=== PATIENT | female | born 1980 | race Two or more races ===

== ENCOUNTER 2024-11-26 08:30 | Emergency (ER) | payer BC, SELFPAY ==
[2024-11-26 08:31] VITALS: BMI 32.4
[2024-11-26 08:40] VITALS: BP 154/97; PULSE 106; RESP 16; TEMP 36.8; O2SAT 97; BMI 32.6
--- NOTE | 2024-11-26 08:50 | PD.EDRME ---
Rapid Medical Screening Exam RME Arrival date/time: 11/26/24 08:30 44-year-old female here with complaints of urinary retention history of renal stones I have greeted and performed a focused initial assessment of this patient. Initial appropriate labs ordered at this time. A comprehensive ED assessment and evaluation of the patient and analysis of all test and completion of medical decision making process will be conducted by additional ED provider. Chief Complaint: Urogenital-Female Time Seen by Provider: 11/26/24 08:40 Vital signs: Vital Signs Temperature 98.3 F 11/26/24 08:40 Pulse Rate 106 H 11/26/24 08:40 Respiratory Rate 16 11/26/24 08:40 Blood Pressure 154/97 H 11/26/24 08:40 Pulse Oximetry (%) 97 11/26/24 08:40 Oxygen Delivery Method Room Air 11/26/24 08:40
[2024-11-26 09:13] LABS: Basophils % (Auto) 1 % (0-2.5); Eosinophils % (Auto) 1 % (0-10); Hematocrit 43.2 % (36.0-46.0); Hemoglobin 14.9 g/dL (12.0-16.0); Immature Granulocytes % (Auto) 0 % (0-0); Immature Granulocytes Auto 0.01 Thou/mm3 (0.00-0.00); Lymphocytes # (Auto) 0.7 Thou/mm3 (1.0-4.8); Lymphocytes % (Auto) 16 % (10-50); Mean Corpuscular HGB Conc 34.5 g/dl (31.0-37.0); Mean Corpuscular Hemoglobin 29.3 pg (25.0-35.0); Mean Corpuscular Volume 85 fL (80-100); Monocytes # (Auto) 0.3 Thou/mm3 (0.0-0.8); Monocytes % (Auto) 8 % (0-12); Neutrophils # (Auto) 3.1 Thou/mm3 (1.8-7.7); Neutrophils % (Auto) 74 % (37-80); Nucleated Red Blood Cell % 0 /100 WBC (0); Platelet Count 227 Thou/mm3 (140-440); RDW Standard Deviation 39.4 fL (36.4-46.3); Red Blood Count 5.08 Miln/mm3 (4.00-5.20); White Blood Count 4.2 Thou/mm3 (3.6-11.0)
--- NOTE | 2024-11-26 09:20 | PC.NURSE ---
PATIENT CAME IN WITH C/O DIFFICULTY URINATING SINCE 4AM. STATES THIS HAPPENED TO HER DURING . SHE HAD DIFFICULTY THEN AND CATHETER WAS PLACED. SHE WENT HOME WITH A LEG BAG TO FOLLOWED UP WITH PMD. SHE IS AWAITING SURGERY DUE TO HERNIAS AND KIDNEY STONES THAT ARE RESTRICTING HER URINATION DUE TO THE LOCATION OF THE HERNIAS. PT AWARE CT ORDERED STATES SHE HAS HAD A LOT OF CT'S RECENTLY AND FEELS THAT SHE IS ALREADY AWARE OF THE PROBLEM AND DOES NOT FEEL CT IS NECESSARY. HERSELF AND DAUGHTER REQEUST TO REFUSE CT. AWARE. IN TO SPEAK WITH PT AT THIS TIME.
[2024-11-26 09:34] LABS: HCG,Qualitative Serum Negative
[2024-11-26 09:41] LABS: Alanine Aminotransferase 15 U/L (10-49); Albumin, Serum 4.8 gm/dL (3.5-5.0); Albumin/Globulin Ratio 1.5 (1.2-2.2); Alkaline Phosphatase 81 U/L (46-116); Anion Gap 6 (7-16); Aspartate Amino Transferase < 8 U/L (0-34); BUN/Creatinine Ratio 7 Ratio (12-20); Bilirubin,Total 0.4 mg/dL (0.3-1.2); Blood Urea Nitrogen 5 mg/dL (9-23); Calcium 9.2 mg/dL (8.3-10.6); Calcium (Corrected) 9.2 mg/dL (8.5-10.1); Carbon Dioxide 27.2 mMol/L (20.0-31.0); Chloride 105 mMol/L (98-107); Creatinine (Component) 0.7 mg/dL (0.6-1.3); Estimated Creatinine Clearance 115.9 mL/min (>60); Globulin 3.3 gm/dL (2.3-3.5); Glucose 111 mg/dL (74-106); Osmolality,Calculated 273 (275-295); Potassium 3.9 mMol/L (3.4-5.1); Sodium 138 mMol/L (136-145); Total Protein 8.1 gm/dL (5.7-8.2); eGFR > 60 See Note
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
== END 2024-11-26 09:40 | disposition home or self-care (01) ==
PROVIDERS: Nurse Practitioner Primary Care; Emergency Provider Emergency Medicine
DX: R33.9 Retention of urine, unspecified (principal)
CPT/HCPCS: 51702; 36415; 80053; 84703; 85025; 99283

== ENCOUNTER 2024-12-03 20:29 | Emergency (ER) | payer BC, SELFPAY ==
[2024-12-03 20:30] VITALS: BMI 32.1
[2024-12-03 20:58] VITALS: BP 150/105; PULSE 70; RESP 18; TEMP 36.8; O2SAT 97
--- NOTE | 2024-12-03 20:59 | PD.EDRME ---
Rapid Medical Screening Exam RME Arrival date/time: 12/03/24 20:29 44 year old female present to Ed for c/o Smith removal. I have greeted and performed a focused initial assessment of this patient. A comprehensive ED assessment and evaluation of the patient, analysis of all test results, and completion of the medical decision making process will be conducted by additional ED providers. Chief Complaint: Urogenital-Female Time Seen by Provider: 12/03/24 20:32 Vital signs: Vital Signs Temperature 98.3 F 12/03/24 20:58 Pulse Rate 70 12/03/24 20:58 Respiratory Rate 18 12/03/24 20:58 Blood Pressure 150/105 H 12/03/24 20:58 Pulse Oximetry (%) 97 12/03/24 20:58 Oxygen Delivery Method Room Air 12/03/24 20:58
--- NOTE | 2024-12-03 23:25 | PC.NURSE ---
Smith removed. Pt tolerated well. Leg bag had approx 200mL of urine in it. Pt given urine cup for pending UA UC and to ensure pt can void independently.
[2024-12-03 23:59] VITALS: BP 134/81; PULSE 78; RESP 18; TEMP 36.8; O2SAT 97
--- NOTE | 2024-12-04 00:22 | PC.NURSE ---
Pt states she has now voided twice independently.
--- NOTE | 2024-12-04 00:24 | EDNOTE_ITS ---
ED Female Urogenital RME/HPI General Chief complaint: Urogenital-Female Stated complaint: NEEDS ORELLANA REMOVED Time Seen by Provider: 12/03/24 20:32 Arrival date/time: 12/03/24 20:29 44 year old female present to emergency room with c/o of orellana removal. pt report had orellana placed 1 week ago and report has an appointment with urologist in jan 2025. SEVERITY: Symptoms are described as being severe with limitations on activities of daily living CONTEXT: The patient is unable to identify any inciting events. DURATION/TIMING: The symptoms started approximately 7 days ASSOCIATED SYMPTOMS: The patient is unable to identify any other associated symptoms. MODIFYING FACTORS: The patient is unable to identify any alleviating or aggravating symptoms. PERTINENT ROS: no fevers, no cough, , no chest pain/shortness of breath no nausea,vomiting, diarrhea, no dizziness/headache no rash no loc/syncope episode no abd/back pain no dsyuria,urgency,frequency REVIEW OF SYSTEMS: See History of Present Illness - with the exception of those mentioned in the history of present illness, all other systems reviewed and reported as negative GENERAL: In general the patient is awake, interactive, in an emergency department rney. HEAD/EYES/EARS/NOSE/THROAT: normo-cephalic, atraumatic, mucus membranes are moist, anicteric, palpebral conjunctiva is pink, trachea is midline. CARDIOVASCULAR: regular rate and regular rhythm, no murmurs, heart sounds are not distant, strong pulses in all four extremities that are equal and symmetric bilateral upper and lower extremities, normal capillary refill. CHEST/PULMONARY: normal chest rise and fall, good air movement, clear to auscultation bilaterally, normal inspiratory to expiratory ratios without evidence of respiratory distress. NECK: No midline/Paraspinal tenderness, no step off ROM/Strenght intact No Kernig and bruzinski sign. No trauma ABDOMEN: soft, not tender, no masses appreciated BACK: normal range of motion without pain. NEUROLOGICAL: cranio-facial features are symmetric, moves all four extremities equally without obvious limitations or weakness. EXTREMITY: no tenderness to palpation over the long bones or large joints of the bilateral upper and lower extremities, no joint swelling, no joint erythema, no signs of trauma, no unilateral leg swelling and no peripheral edema. SKIN: warm, dry, well-perfused, no jaundice, no rash, no telangiectasias or petechia. PSYCH: calm, cooperative, no evidence of psychosis or agitation RME / HPI RME / HPI Narrative: 12/03/24 20:29 44 year old female present to Ed for c/o Orellana removal. I have greeted and performed a focused initial assessment of this patient. A comprehensive ED assessment and evaluation of the patient, analysis of all test results, and completion of the medical decision making process will be conducted by additional ED providers. Related Data Allergies Allergy/AdvReac Type Severity Reaction Status Date / Time No Known Allergies Allergy Verified 12/03/24 20:32 Course Course Course Narrative: Pt is request orellana be removed, able to urinated twice provider mention you may not be able to urinated and may have to return to Ed for orellana placement again. pt understand the rest. urine pending. Quality Measures none Orders Category Date Time Status Urinalysis Stat Lab 12/03/24 23:27 Ordered Urine Culture Stat Lab 12/03/24 23:27 Ordered Vital Signs Vital signs: Vital Signs Temperature 98.3 F 12/03/24 20:58 Pulse Rate 70 12/03/24 20:58 Respiratory Rate 18 12/03/24 20:58 Blood Pressure 150/105 H 12/03/24 20:58 Pulse Oximetry (%) 97 12/03/24 20:58 Oxygen Delivery Method Room Air 12/03/24 20:58 Urogenital - Female Patient data External records reviewed:: [facility] previous records Clinical information provided by:: patient Social determinants that could affect healthcare access:: none Patient has the following chronic illnesses:: urinary retention How is presenting disease/condition affected by chronic disease/condition?: exacerbated by Evaluation data The following diagnostics were reviewed and interpreted by me:: lab results Lab and/or radiology exams considered but not ordered:: none Interpretation Summary: urine pending Medications / Prescriptions Medications or Prescriptions considered but not ordered:: none Medication administrations:: none Consultations Consultation(s) initiated? (list below): No Diagnosis Urogenital Female Differential Diagnosis: other (UTI, orellana removal ) Most likely diagnosis given after review of the tests above:: orellana removal Admission Indicated Admission indicated?: not indicated Admission Request Was there a request for admission?: No Disposition Plan Disposition Plan: Discharge Discharge Attestation Discharge Attestation: The patient and all family members were given an opportunity to ask questions and understood the discharge instructions. Discharge instructions specifically effects, indications for sooner follow up or return to the emergency department, and the expected course of current diagnosis. Patient condition: Stable Discharge Plan Plan Patient Disposition: HOME (Self Care) Health Concerns: Follow up with your specialist as directed Prescriptions/Referrals Referrals: No Primary/Family,Physician [Primary Care Provider] - In 1 week Problem List Clinical Impression: Encounter for Orellana catheter removal Patient/Caregiver Discharge Instructions Education Materials: Orellana Catheter Removal Print Language: Tanzanian Stand Alone Forms: Adriana Award Info., Patient Portal Info Letter
== END 2024-12-04 00:28 | disposition home or self-care (01) ==
PROVIDERS: Emergency Provider Emergency Medicine
DX: Z46.6 Encounter for fitting and adjustment of urinary device (principal)
CPT/HCPCS: 81001; 87086; 99282

== ENCOUNTER 2025-02-27 10:13 | Emergency (ER) | payer BC, SELFPAY ==
[2025-02-27 10:14] VITALS: BMI 29.0
[2025-02-27 10:22] VITALS: BP 162/90; PULSE 89; RESP 18; TEMP 36.9; O2SAT 99
--- NOTE | 2025-02-27 11:00 | PC.NURSE ---
1100ML URINE OUTPUT WITH SIERRA INSERTION
--- NOTE | 2025-02-27 11:14 | EDNOTE_ITS ---
<Statement entered by Rebekah King MD - 02/28/25 17:54> As co-signing physician, I was present and available for consult prn. I concur with the plan and care as documented by the midlevel provider. ED Female Urogenital RME/HPI General Chief complaint: General Adult/Misc Complain Stated complaint: UNABLE TO URINATE SINCE 6AM Time Seen by Provider: 02/27/25 10:24 Arrival date/time: 02/27/25 10:13 45-year-old female presents to the Emergency Department today with complaints of urinary retention. Patient reports history of urinary retention has been worked up fully for this. Patient reports that she has surgery scheduled for March for hysterectomy and bladder lift. Limitations: no limitations Related Data Allergies Allergy/AdvReac Type Severity Reaction Status Date / Time No Known Allergies Allergy Verified 02/27/25 10:16 Review of Systems Review of Systems Systems Reviewed: All systems reviewed, normal except as documented Constitutional Constitutional: Reports system reviewed and no additional complaints, except as documented, Denies fever(s) and Denies headache(s) Eyes Eyes: Reports system reviewed and no additional complaints, except as documented and Denies blurry vision ENT Ears, Nose, Mouth, and Throat: Reports system reviewed and no additional complaints, except as documented, Denies headache(s), Denies nasal congestion and Denies nasal discharge Cardiovascular Cardiovascular: Reports system reviewed and no additional complaints, except as documented, Denies chest pain and Denies dyspnea Respiratory Respiratory: Reports system reviewed and no additional complaints, except as documented, Denies chest congestion, Denies cough and Denies dyspnea Gastrointestinal Gastrointestinal: Reports system reviewed and no additional complaints, except as documented and Denies abdominal pain Genitourinary Genitourinary: Reports system reviewed and no additional complaints, except as documented and Reports other (Urinary retention) Integumentary/Breasts Skin/Breast: Reports system reviewed and no additional complaints, except as documented and Denies rash Neurologic Neurologic: Reports system reviewed and no additional complaints, except as documented, Reports as per HPI and Denies headache(s) Past Medical History Past Medical History CARDIAC: Negative Congestive Heart Failure RESPIRATORY: Negative Chronic Obstructive Pulmonary Disease (COPD) GENITOURINARY: Negative Renal Disease ENDOCRINE: Negative Diabetes Mellitus Type 1 or Diabetes Mellitus Type 2 Social History SMOKING STATUS: Never smoker ED Exam General Limitations: Present no limitations General appearance: Present alert and in no apparent distress Head Head exam: Present atraumatic, normocephalic and normal inspection Eye Eye exam: Present normal appearance, PERRL and EOMI; Absent conjunctival injec tion ENT ENT exam: Present normal exam, normal oropharynx and mucous membranes moist Neck Neck exam: Present normal inspection, full ROM and trachea midline Chest Chest inspection: Present normal inspection and symmetric chest wall rise Respiratory Respiratory exam: Present normal lung sounds bilaterally; Absent respiratory distress Cardiovascular Cardiovascular exam: Present regular rate, normal rhythm and normal heart sounds Abdominal Exam Abdominal exam: Present soft and normal bowel sounds; Absent distention, tenderness, guarding, rebound or rigidity Extremities Exam Extremities exam: Present normal inspection and full ROM Back Exam Back exam: Present normal inspection and full ROM Neurological Exam Neurological exam: Present alert, oriented X3 and CN II-XII intact Psychiatric Psychiatric exam: Present normal affect and normal mood Skin Skin exam: Present warm, dry, intact and normal color Course Quality Measures none Orders Category Date Time Status Smith [Urinary Catheter] QS Care 02/27/25 11:00 Completed Smith to Leg Bag Routine Care 02/27/25 11:00 Ordered Vital Signs Vital signs: Vital Signs Temperature 98.5 F 02/27/25 10:22 Pulse Rate 89 02/27/25 10:22 Respiratory Rate 18 02/27/25 10:22 Blood Pressure 162/90 H 02/27/25 10:22 Pulse Oximetry (%) 99 02/27/25 10:22 Oxygen Delivery Method Room Air 02/27/25 10:22 O2 saturation 99% room air wnl Urogenital - Female MDM Narrative MDM Narrative:: 45-year-old female presents to the Emergency Department today with complaints of urinary retention. Patient reports history of urinary retention has been worked up fully for this. Patient reports that she has surgery scheduled for March for hysterectomy and bladder lift. Patient states she does not want any lab work or imaging at this time she reports that she has a follow-up appointment with her specialist patient reports she just wants the catheter placed. Catheter was placed patient has significant amount of urine output Patient discharged home in no distress to follow-up with primary care doctor in the next 24 to 48 hours and for any worsening symptoms to return to the ER im mediately Patient data External records reviewed:: [facility] previous records Clinical information provided by:: patient Social determinants that could affect healthcare access:: none Patient has the following chronic illnesses:: none How is presenting disease/condition affected by chronic disease/condition?: no chronic disease Evaluation data The following diagnostics were reviewed and interpreted by me:: other (specify) (N/A) Lab and/or radiology exams considered but not ordered:: N/A Interpretation Summary: N/A Medications / Prescriptions Medications or Prescriptions considered but not ordered:: N/A Medication administrations:: N/A Consultations Consultation(s) initiated? (list below): No Diagnosis Urogenital Female Differential Diagnosis: urinary tract infection, ruptured ovarian cyst, cystitis and other (Urinary retention) Most likely diagnosis given after review of the tests above:: Urinary retention Admission Indicated Admission indicated?: not indicated Admission Request Was there a request for admission?: No Disposition Plan Disposition Plan: Discharge Discharge Attestation Discharge Attestation: The patient and all family members were given an opportunity to ask questions and understood the discharge instructions. Discharge instructions specifically effects, indications for sooner follow up or return to the emergency department, and the expected course of current diagnosis. Patient condition: Stable Discharge Plan Plan Patient Disposition: HOME (Self Care) Disposition Comment: Stable Problem List Clinical Impression: Acute on chronic urinary retention Patient/Caregiver Discharge Instructions Education Materials: ED Smith Catheter, Care Additional Instructions: Please follow up with your primary care doctor in the next 24-48hrs for any worsening symptoms return here immediately Print Language: Uruguayan Stand Alone Forms: Adriana Award Info., Patient Portal Info Letter PA/[employer] Supervising Physician THEODORA/KAMILLA Supervising Physician: Dr king
== END 2025-02-27 11:38 | disposition home or self-care (01) ==
LOC: SERX 11:26
PROVIDERS: Emergency Provider Emergency Medicine
DX: R33.9 Retention of urine, unspecified (principal)
CPT/HCPCS: 51702; 99283

== ENCOUNTER 2025-02-28 22:05 | Emergency (ER) | payer BC, SELFPAY ==
[2025-02-28 22:08] VITALS: BMI 29.0
[2025-02-28 22:17] VITALS: BP 145/97; PULSE 88; RESP 18; TEMP 36.7; O2SAT 97
--- NOTE | 2025-02-28 22:31 | PD.EDABDPN ---
ED Abdominal Pain RME/HPI General Chief Complaint: Abdominal Pain Stated complaint: orellana cath problem pain Time seen by provider: 02/28/25 22:10 Arrival date/time: 02/28/25 22:05 45 year old female present to emergency room with c/o orellana removal. pt report has an appointment with her PCP/specialist on friday. pt report history of urinary retention in the past and able to urinated when orellana is removed. SEVERITY: orellana CONTEXT: The patient is unable to identify any inciting events. DURATION/TIMING: The symptoms started approximately 1 day ASSOCIATED SYMPTOMS: The patient is unable to identify any other associated symptoms. MODIFYING FACTORS: The patient is unable to identify any alleviating or aggravating symptoms. PERTINENT ROS: no fevers, no chest pain/shortness of breath no nausea,vomiting, diarrhea, no dizziness/headache no rash no loc/syncope episode REVIEW OF SYSTEMS: See History of Present Illness - with the exception of those mentioned in the history of present illness, all other systems reviewed and reported as negative GENERAL: In general the patient is awake, interactive, in an emergency department gurney. HEAD/EYES/EARS/NOSE/THROAT: normo-cephalic, atraumatic, mucus membranes are moist, anicteric, palpebral conjunctiva is pink, trachea is midline. CARDIOVASCULAR: regular rate and regular rhythm, no murmurs, heart sounds are not distant, strong pulses in all four extremities that are equal and symmetric bilateral upper and lower extremities, normal capillary refill. CHEST/PULMONARY: normal chest rise and fall, good air movement, clear to auscultation bilaterally, normal inspiratory to expiratory ratios without evidence of respiratory distress. NECK: No midline/Paraspinal tenderness, no step off ROM/Strenght intact No Kernig and bruzinski sign. No trauma ABDOMEN: soft, not tender, no masses appreciated BACK: normal range of motion without pain. NEUROLOGICAL: cranio-facial features are symmetric, moves all four extremities equally without obvious limitations or weakness. EXTREMITY: no tenderness to palpation over the long bones or large joints of the bilateral upper and lower extremities, no joint swelling, no joint erythema, no signs of trauma, no unilateral leg swelling and no peripheral edema. SKIN: warm, dry, well-perfused, no jaundice, no rash, no telangiectasias or petechia. PSYCH: calm, cooperative, no evidence of psychosis or agitation Related Data Allergies Allergy/AdvReac Type Severity Reaction Status Date / Time No Known Allergies Allergy Verified 02/28/25 22:15 Course Course Course Narrative: Orellana removed by nurse without complications, report no gross hematuria and patient denies any current compliants Quality Measures none Vital Signs Vital signs: Vital Signs Temperature 98.1 F 02/28/25 22:17 Pulse Rate 88 02/28/25 22:17 Respiratory Rate 18 02/28/25 22:17 Blood Pressure 145/97 H 02/28/25 22:17 Pulse Oximetry (%) 97 02/28/25 22:17 Oxygen Delivery Method Room Air 02/28/25 22:17 Abdominal Pain MDM Patient data External records reviewed:: [facility] previous records Clinical information provided by:: patient Social determinants that could affect healthcare access:: none Patient has the following chronic illnesses:: as stated in her chart How is presenting disease/condition affected by chronic disease/condition?: exacerbated by Evaluation data The following diagnostics were reviewed and interpreted by me:: other (specify) (n/a ) Lab and/or radiology exams considered but not ordered:: n/a Interpretation Summary: n/a Medications / Prescriptions Medications or Prescriptions considered but not ordered:: n/a Medication administrations:: n/a Consultations Consultation(s) initiated? (list below): No Diagnosis Differential diagnosis abdominal pain: other (orellana removal ) Most likely diagnosis given after review of the tests above:: orellana removal Admission Indicated Admission indicated?: not indicated Admission Request Was there a request for admission?: No Disposition Plan Disposition Plan: Discharge Discharge Attestation Discharge Attestation: The patient and all family members were given an opportunity to ask questions and understood the discharge instructions. Discharge instructions specifically effects, indications for sooner follow up or return to the emergency department, and the expected course of current diagnosis. Patient condition: Stable Discharge Plan Plan Patient Disposition: HOME (Self Care) Problem List Clinical Impression: Encounter for Orellana catheter removal Patient/Caregiver Discharge Instructions Education Materials: Orellana Catheter Removal Print Language: [place] Stand Alone Forms: Adriana Award Info., Patient Portal Info Letter
--- NOTE | 2025-02-28 22:47 | PC.NURSE ---
urinary orellana catheter removed. No gross hematuria observed. Tolerated procedure. Provider aware of all the above.
== END 2025-02-28 22:40 | disposition home or self-care (01) ==
LOC: SERX 23:13
PROVIDERS: Emergency Provider Emergency Medicine
DX: Z46.6 Encounter for fitting and adjustment of urinary device (principal)
CPT/HCPCS: 99282